=== PATIENT | male | born 1960 | race Caucasian/White ===

== ENCOUNTER 2025-06-05 13:44 | Outpatient (AMB) | payer OTHER, SELFPAY ==
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
[2025-06-05 13:58] VITALS: BP 120/59; PULSE 79; TEMP 36.8; O2SAT 96; BMI 33.6
== END 2025-06-05 14:28 | disposition home or self-care (01) ==
LOC: HO.HMCFMS 13:44
PROVIDERS: PCP Student in an Organized Health Care Education/Training Program; Visit Provider Student in an Organized Health Care Education/Training Program
DX: E11.9 Type 2 diabetes mellitus without complications (principal); I10 Essential (primary) hypertension; E78.5 Hyperlipidemia, unspecified; F32.A Depression, unspecified; F23 Brief psychotic disorder; G47.00 Insomnia, unspecified; F17.200 Nicotine dependence, unspecified, uncomplicated; Z23 Encounter for immunization

== ENCOUNTER 2025-06-05 13:44 | Outpatient (REF) | payer OTHER, SELFPAY ==
[2025-06-05 18:03] LABS: MANUAL DIFF FLAG NO
[2025-06-05 18:15] LABS: Appearance Urine Turbid; Glucose Urine UA Negative (Negative); PH 5.0 (5.0-9.0); Specific Gravity - Urine 1.025 (1.005-1.025)
[2025-06-05 18:22] LABS: Hematocrit 37.3 % (42.0-52.0); Hemoglobin 12.0 g/dl (14.0-18.0); Imm Gran Abs Auto 0.03 X10*3/uL (0.00-0.03); Imm Gran Pct Auto 0.3 % (0.0-0.4); Lymphocytes Absolute Auto 2.1 X10*3/uL (1.2-4.9); Mean Corpuscular HGB Conc 32.2 g/dl (31.0-36.0); Mean Corpuscular Hemoglobin 31.7 pg (27.0-33.0); Mean Corpuscular Volume 98.7 fL (80.0-98.0); NRBC Abs Auto 0.000 X10*3/uL (0.0-0.012); NRBC Pct Auto 0.0 /100WBC (0.0-0.2); Platelet Count 391 X10*3/uL (160-400); Red Blood Count 3.78 X10*6/uL (4.60-5.80); White Blood Count 9.2 X10*3/uL (4.8-10.8)
[2025-06-05 18:58] LABS: Alanine Aminotransferase 25 U/L (0-40); Albumin Level 4.7 g/dL (3.5-5.0); Alkaline Phosphatase 73 U/L (39-117); Anion Gap 13 (12-20); Aspartate Amino Transferase 31 U/L (5-37); Blood Urea Nitrogen 21 mg/dL (9-16); Calcium 9.5 mg/dL (8.4-10.2); Carbon Dioxide 28 mmol/L (22-29); Chloride 103 mmol/L (96-108); Cholesterol 144 mg/dL (<200); Estimated Glomerular Filt Rate > 60; HDL Cholesterol 52 mg/dL (>40); Magnesium 2.3 mg/dL (1.6-2.6); Potassium 4.3 mmol/L (3.3-5.1); Sodium 140 mmol/L (135-145); Total Protein 7.4 g/dL (6.5-8.0); Triglycerides 76 mg/dL (<150)
[2025-06-05 19:26] LABS: Folate 9.8 ng/mL (> or = 4.0); Vitamin B12 291 pg/mL (200-900)
[2025-06-06 06:44] LABS: Syphilis Screen Nonreactive (Nonreactive)
[2025-06-06 07:42] LABS: HBS Num1 2.23 mIU/mL (0-7.99); HBsAGNum1 0.40 S/CO (0.00-0.99); HIV Num 1 0.08 S/CO (0.00-0.99); Hepatitis B Surface Antigen Negative (Negative); ~HepC Num1 0.10 S/CO (0.00-0.79); ~Hepatitis B Surface Antibody NONREACTIVE (Nonreactive); ~Hepatitis C Antibody Nonreactive (Nonreactive)
[2025-06-09 18:29] LABS: VITAMIN D (1,25 OH) D3 33 pg/mL; Vit D (1,25-Dihydroxy) Total 33 pg/mL (18-72); Vitamin D (1,25 OH) D2 <8 pg/mL
== END 2025-06-05 13:45 | disposition home or self-care (01) ==
LOC: HO.HKASLDS 13:44
PROVIDERS: PCP Student in an Organized Health Care Education/Training Program; Visit Provider Student in an Organized Health Care Education/Training Program
DX: Z13.9 Encounter for screening, unspecified (principal); Z23 Encounter for immunization; E11.9 Type 2 diabetes mellitus without complications; I10 Essential (primary) hypertension; E78.5 Hyperlipidemia, unspecified; F32.A Depression, unspecified; F23 Brief psychotic disorder; G47.00 Insomnia, unspecified; F17.200 Nicotine dependence, unspecified, uncomplicated; Z79.84 Long term (current) use of oral hypoglycemic drugs; Z79.899 Other long term (current) drug therapy
CPT/HCPCS: 36415; 80053; 80061; 81003; 82607; 82652; 82746; 83036; 83735; 84443; 85025; 86706; 86780; 86803; 87340; 87389; 90471; 90656; 96127

== ENCOUNTER 2025-06-21 13:49 | Outpatient (AMB) | payer OTHER, SELFPAY ==
--- NOTE | 2025-06-21 13:55 | A.OFFPC_ITS ---
Vital Signs 06/21/25 14:00 Height 5 ft 6.93 in Weight 219 lb BMI 34.4 BP 103/48 L Blood Pressure Location Rt brachial Position Sitting Respiration 17 Pulse 80 Pulse Source Pulse Oximeter Temp 97.6 F Temp Source Oral Pulse Oximetry (%) 98 Oxygen Delivery Method Room Air Intake Visit Reasons: 2 week follow up/ Labs Intake Note: Patient present for follow up labs. 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 by: Self / Same As Patient Allergies No Known Allergies Allergy (Verified 06/21/25 13:58) Medication List - Last Reconciled 06/21/25 by David Hidalgo MD amlodipine 5 mg PO DAILY ascorbic acid (vitamin C) 500 mg PO DAILY atorvastatin 20 mg PO BEDTIME ferrous sulfate 325 mg PO DAILY mecobalamin (vitamin B12) 1,000 mcg sublingual BEDTIME metformin 500 mg PO BID nicotine 1 patch transdermal Q24H nicotine (polacrilex) 4 mg buccal Q2H risperidone 1 mg PO BID sertraline 100 mg PO DAILY trazodone 50 mg PO BEDTIME Tobacco use date assessed: 06/05/25 Fall risk assessment: 1 Fall in past year Last assessed Fall Risk: 06/21/25 Dental Screening Dental Screen Date: 06/05/25 HPI HPI Comments History of Present Illness Details Consent The upcoming colonoscopy procedure was discussed with the patient. It was explained that this involves a bowel prep the day before, sedation during the procedure, and the insertion of a camera into the large intestine to check for abnormalities such as polyps. The possibility of a biopsy, where a tissue sample is taken for further examination if anything abnormal is found, was also reviewed. Patient was informed and verbally consented to the use of an ambient scribe for clinic note documentation during this visit. History of Present Illness The patient is a 65 year old male presenting for a review of lab and test results. Positive Cologuard Screen: The patient received notification of a positive Cologuard test result, which has prompted a referral for a diagnostic colonoscopy. Anemia: The patient denies any previous diagnosis of anemia. Recent lab work revealed a low red blood cell count of 3.78 and a hemoglobin of 12. Type 2 Diabetes Mellitus: The patient has a history of type 2 diabetes and was previously prescribed glipizide and metformin. His recent HbA1c was 5.9 via a fingerstick test and 5.8 via a blood draw, placing him in the prediabetic range. His mother has a history of diabetes. Vitamin B12 Deficiency: The patient's vitamin B12 level was noted to be low at 291. He takes metformin, which is known to potentially lower B12 levels. Medications: - Glipizide for diabetes - Metformin 500 mg twice a day for diabe eric - Amlodipine - Atorvastatin for cholesterol Family History: - Mother has a history of diabetes. Diagnostic Results: - Cologuard: Positive. - CBC: White blood cell count is normal. Red blood cell count is low at 3.78 (normal >4.60). Hemoglobin is low at 12 (normal >14). - Chemistries: Sodium, potassium, and ki dney function are normal. - HbA1c: 5.9% via fingerstick and 5.8% v ia blood draw, indicating prediabetes. - Lipid Panel: Cholesterol, triglyceride s, and LDL levels are good. - Vitamins: Vitamin D is normal. Vitamin B12 is low at 291 (normal range 200- 700). - Thyroid function tests: Normal. - Urinalysis: Normal. - Infectious Disease Screening: Hepatiti s B, hepatitis C, and HIV are negative. Review of Systems - Constitutional: Denies prior knowledge of anemia. - Gastrointestinal: Reports positive Col oguard test. All other systems not discussed and are considered negative. 10-point ROS reviewed and negative excep t as noted in HPI Past Medical History - Type 2 diabetes mellitus Health Maintenance - Colon cancer screening: Cologuard test was positive, prompting a referral for a colonoscopy. - Infectious disease screening: Tested n egative for Hepatitis B, Hepatitis C, and HIV. - Dietary counseling: Advised to increas e dietary intake of iron-rich foods. Physical Exam General: Well-appearing, in no acute distress. Vital signs: Within normal limits. HEENT: Normocephalic, atraumatic. PERRLA, EOMI. Conjunctiva clear, sclera anicteric. Oropharynx clear, mucous membranes moist. TMs intact bilaterally. Neck: Supple, no lymphadenopathy, no thyromegaly, no JVD or carotid bruits. Cardiovascular: RRR, normal S1/S2, no murmurs, rubs, or gallops. Peripheral pulses 2+ and symmetric. No edema. Respiratory: Lungs clear to auscultation bilaterally, no wheezes, rales, or rhonchi. Normal effort. Abdomen: Soft, non-tender, non-distended. Normoactive bowel sounds. No hepatosplenomegaly, no masses. MSK: Full range of motion, no joint swelling or deformity. Normal gait. Skin: Warm, dry, intact. No rashes, lesions, or pallor. Neuro: Alert and oriented x3. Cranial nerves II-XII intact. Strength 5/5 throughout. Sensation intact. Reflexes 2+ symmetric. Normal coordination and gait. Psych: Appropriate mood and affect. Normal judgment and insight. Plan 1. Positive Cologuard Screen - A referral will be made to Gastroenter ology for a colonoscopy to evaluate the positive Cologuard finding. 2. Anemia - Will prescribe iron and vitamin C supp lements. - Patient advised to take iron with sylvia min C one hour before or two hours after a meal to improve absorption. - Counseled on potential side effects, i ncluding constipation and dark stools. - Recommended managing constipation with mlye-lox-pmjqfmo MiraLAX, increased fiber, and water intake. - Will provide educational material on i mao-rich foods. 3. Type 2 Diabetes Mellitus / Prediabete s - Discontinue glipizide. - Continue metformin 500 mg twice a day. - Patient advised to stop checking finge rstick blood sugars. 4. Vitamin B12 Deficiency - Will prescribe a vitamin B12 supplemen t to be taken daily. 5. Hyperlipidemia / Cardiovascular Risk Reduction - Continue atorvastatin for cardiovascul ar protection. 6. Hypertension - Continue amlodipine. Discussion Notes I reviewed the patient's recent lab results and positive Cologuard test with him. I explained that the positive Cologuard requires a follow-up colonoscopy to investigate further and that we would make a referral to a service liaison representative. We discussed the procedure, which includes bowel preparation, sedation, and a camera examination of the colon with possible biopsies. I informed him of his new diagnosis of anemia, with a low red blood cell count and hemoglobin, which may be related to a source of bleeding that the colon oscopy will help identify. I recommended starting iron and vitamin C supplements and counseled him on potential side effects like constipation and dark stools, along with dietary modifications. We discussed his HbA1c of 5.8, which places him in the prediabetic range and reflects excellent glycemic control. Given this improvement, I recommended he stop taking glipizide and continue only with metformin, and that he no longer needs to perform fingerstick glucose monitoring. We also reviewed his low vitamin B12 level, which is a known side effect of metformin, and I prescribed a B12 supplement. Finally, I advised him to continue his atorvastatin for heart protection despite his good cholesterol levels. Patient Instructions - We are referring you to a anatoliy ventura (service liaison representative) for a colonoscopy because your Cologuard stool test came back positive. - Stop taking your glipizide medication for diabetes. - Continue taking your other current med ications: metformin, amlodipine, and atorvastatin. - You do not need to check your blood almaraz gar with finger sticks anymore. - Start taking an iron supplement and a vitamin C supplement together once a day. Take them either 1 hour before you eat or 2 hours after you eat. - The iron pill may cause constipation a nd make your stool turn a dark color, which is normal. To help with constipation, drink plenty of water, eat more fiber, or use an gimq-eeo-orpserd laxative like MiraLAX. - Start taking a vitamin B12 supplement every night. - We will give you a list of foods that are high in iron to help increase your iron levels naturally. Medical Decision Making The patient is a 65-year-old male presenting for a review of recent diagnostic results. The primary findings are a positive Cologuard test and a new diagnosis of anemia. The positive Cologuard necessitates a definitive evaluation with a diagnostic colonoscopy to rule out colorectal polyps or malignancy; a referral to gastroenterology is being made. The concurrent diagnosis of anemia (Hgb 12) increases the clinical suspicion for a gastrointestinal source of bleeding, which further supports the need for endoscopic evaluation. While awaiting the colonoscopy, empiric treatment with oral iron and vitamin C supplementation will be initiated. The patient's lab work shows significant improvement in glycemic control, with an HbA1c of 5.8, placing him in the prediabetic range. Based on this, his diabetes regimen is being de-escalated by discontinuing the sulfonylurea (glipizide) to reduce the risk of hypoglycemia, while continuing metformin monotherapy. The low vitamin B12 level is likely attributable to metformin use, and replacement therapy is warranted. Despite good lipid levels, atorvastatin will be continued for primary cardiovascular protection. Total Time Statement 20 min Total time spent caring for the patient today includes pre-visit chart review, documentation, review of laboratory and diagnostic imaging results, medication reconciliation, medically necessary evaluation, counseling on diagnoses, care coordination, ordering appropriate tests and medications, review of tests performed by other providers, reporting test results to the patient, and communication with other healthcare providers. 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 Father No problems noted. Social History (Updated 06/21/25 @ 13:59 by Naeem Freedman CMA) Housing: House Alcohol intake: never Patient Tobacco Use Status: Current everyday Tobacco user e-Cigarette/Vaping Use: Never Used service: No Current occupational status: retired Cognitive needs: No Hearing needs: No Vision needs: Yes (rx glasses) Questionnaire PHQ-9 Over the last 2 weeks, how often have you been bothered by any of the following problems? 1. Little interest or pleasure in doing things: not at all 2. Feeling down, depressed, or hopeless: not at all 3. Trouble falling or staying asleep, or sleeping too much: not at all 4. Feeling tired or having little energy: not at all 5. Poor appetite or overeating: not at all 6. Feeling bad about yourself - or that you are a failure or have let yourself or your family down: several days 7. Trouble concentrating on things, such as reading the newspaper or watching television: not at all 8. Moving or speaking so slowly that other people could have noticed. Or the opposite - being so fidgety or restless that you have been moving around a lot more than usual: several days 9. Thoughts that you would be better off or of hurting yourself in some way: not at all Total score: 2 Depression Screening Interpretation: Negative Depression Screening Done: Yes [id number] - PHQ-9 Billing: Yes Source: Developed by Drs. Chinmay Cai, Kiah Moura, Twin Vickers and colleagues, with an educational sony from [employer]. Thrive Questionnaire Date Thrive assessed: 06/05/25 I am a: Patient What is your living situation today?: I have a steady place to live Within the past 12 months, did the food you bought not last and you didn't have the money to get more?: Never true Within the past 12 months, did you worry whether your food would run out before you got money to buy more?: Never true Do you have trouble paying for medicines?: I choose not to answer this question Do you have trouble getting transportation to medical appointments?: No Do you have trouble paying your heating and electricity bill?: No Do you have trouble taking care of your child, family member or friend?: No Do you have trouble with day-to-day activities such as bathing, preparing meals, shopping, managing finances, etc.?: No Are you currently unemployed and looking for a job?: I choose not to answer this question Are you interested in more education?: Yes Please select the resources that you would like help with: None THRIVE Score: 0 AUDIT C Alcohol Use Questionnaire (AUDIT-C) 1. How often do you have a drink containing alcohol?: Never Total Score: 0 LISA-7 AMB Questionnaire LISA-7 Date LISA - 7 assessed: 06/05/25 Feeling nervous, anxious, or on edge: 1 = Several days Not being able to stop or control worryin = Not at all Worrying too much about different things: 1 = Several days Trouble relaxin = Not at all Being so restless that it is hard to sit still: 3 = Nearly every day Becoming easily annoyed or irritable: 1 = Several days Feeling afraid as if something awful might happen: 1 = Several days Total LISA-7 score (0-4 normal; 5-9 mild; 10-14 moderate; 15-21 severe): 7 Source: Developed by Drs. Chinmay Cai, Kiah Moura, Twin Vickers and colleagues, with an educational sony from [employer]. LISA-7 Assessment Billing LISA-7 Assessment Tool: LISA-7 Assessment 64068 Physical exam (Primary Care) Vital Signs: Last Vital Signs Temp 97.6 F 06/21/25 14:00 Pulse 80 06/21/25 14:00 Resp 17 06/21/25 14:00 BP 103/48 L 06/21/25 14:00 Pulse Ox 98 06/21/25 14:00 Oxygen Delivery Method Room Air 06/21/25 14:00 BMI result Body Mass Index 34.4 Tobacco/Smoking Status: Tobacco use Status Tobacco use date assessed 06/05/25 06/21/25 14:02 Patient Tobacco Use Status Current everyday Tobacco 06/21/25 14:02 e-Cigarette/Vaping Use Never Used 06/21/25 14:02 PHQ-9: PHQ-9 Score PHQ-9: Total score 2 06/21/25 14:02 Depression Screening Interpretation: Negative Thrive Assessment: Date of Thrive Assessment Date Thrive assessed 06/05/25 06/21/25 14:02 Coding Level of Care Code Est Pt Level 3 (53877) Diagnoses Diabetes type 2 E11.9 Other fecal abnormalities R19.5 Anemia D64.9 Hyperlipidemia E78.5 Hypertension I10 Additional Codes LISA-7 Assessment Billing - LISA-7 Assessment Tool: LISA-7 Assessment [id number] ([id number]) PHQ-9 - 67182 - PHQ-9 Billing: Yes ([id number]) Assessment & Plan Assessment & Plan (1) Diabetes type 2: Code(s): E11.9 - Type 2 diabetes mellitus without complications Category: Medical (2) Other fecal abnormalities: Code(s): R19.5 - Other fecal abnormalities Category: Medical (3) Anemia: Code(s): D64.9 - Anemia, unspecified Category: Medical (4) Hyperlipidemia: Code(s): E78.5 - Hyperlipidemia, unspecified Category: Medical (5) Hypertension: Code(s): I10 - Essential (primary) hypertension Category: Medical Plan Orders: Referrals Gastroenterology Referral R19.5 - Other fecal abnormalities Open Access Screening Colonoscopy Referral Z12.11 - Encounter for screening for malignant neoplasm of colon, Z12.12 - Encounter for screening for malignant neoplasm of rectum Medications: New ascorbic acid (vitamin C) 500 mg PO DAILY 90 tabs 0RF ferrous sulfate 325 mg PO DAILY 90 tabs 0RF mecobalamin (vitamin B12) place tablet under tongue and allow to dissolve for at least30 secs before swallowing 1,000 mcg sublingual BEDTIME 90 tabs 0RF Discontinued glipizide Discontinued Reason: Doctor's Order 5 mg PO DAILY 90 tabs 0RF
[2025-06-21 14:00] VITALS: BP 103/48; PULSE 80; RESP 17; TEMP 36.4; O2SAT 98; BMI 34.4
== END 2025-06-21 14:19 | disposition home or self-care (01) ==
LOC: HO.HMCFMS 13:50
PROVIDERS: PCP Student in an Organized Health Care Education/Training Program; Visit Provider Student in an Organized Health Care Education/Training Program
DX: E11.9 Type 2 diabetes mellitus without complications (principal); R19.5 Other fecal abnormalities; D64.9 Anemia, unspecified; E78.5 Hyperlipidemia, unspecified; I10 Essential (primary) hypertension